=== PATIENT | female | born 1955 | race Two or more races ===

== ENCOUNTER 2021-09-21 15:45 | Outpatient (CLI) | payer OTHER | END 2021-09-21 15:55 | disposition home or self-care (01) | LOC: PPH VACUNA 15:45 | PROVIDERS: ATTEND Emergency Medicine Pediatric Emergency Medicine | DX: Z23 Encounter for immunization (principal) ==

== ENCOUNTER 2022-01-21 10:23 | Outpatient (CLI) | payer OTHER | END 2022-01-21 10:25 | disposition home or self-care (01) | LOC: SONOGRAMA 10:23 | PROVIDERS: ATTEND Pathology Anatomic Pathology & Clinical Pathology | DX: E04.1 Nontoxic single thyroid nodule (principal) ==